=== PATIENT | female | born 1985 | race Caucasian/White ===

== ENCOUNTER 2016-11-24 10:13 | Inpatient (IN) | payer MEDICAID, OTHER ==
[~2016-11-24] VITALS: Ht 160 cm; Wt 60.9 kg
[2016-11-25] MEDS ORDERED: OXYTOCIN 30 UNITS/LR 500 ML BAG IV ONE (07:00)
[2016-11-25] MEDS ORDERED: LACTATED RINGER'S 1,000 ML IV PRN (11:00)
[2016-11-25] MEDS ORDERED: LACTATED RINGER'S 1,000 ML IV SCH ×2 (11:11→13:10)
[2016-11-25 11:19] VITALS: Ht 160 cm; Wt 60.9 kg
[2016-11-25] MEDS ORDERED: LIDOCAINE 1% (MPF) 30 ML INJ INJ PRN (11:30)
[2016-11-25] MEDS ORDERED: CARBOPROST 250 MCG INJ IM PRN ×3 (11:30→19:00)
[2016-11-25] MEDS ORDERED: BUTORPHANOL 2 MG INJ IV PRN (11:30)
[2016-11-25] MEDS ORDERED: ACETAMINOPHEN/CODEINE #3 TAB PO PRN (11:30)
[2016-11-25] MEDS ORDERED: METHYLERGONOVINE 0.2 MG INJ IM PRN ×3 (11:30→19:00)
[2016-11-25] MEDS ORDERED: MISOPROSTOL 200 MCG TAB PR PRN ×3 (11:30→19:00)
[2016-11-25] MEDS ORDERED: OXYTOCIN 30 UNITS/LR 500 ML IV SCH ×4 (11:30→13:30)
[2016-11-25] MEDS ORDERED: OXYTOCIN 30 UNITS/LR 500 ML IV PRN ×3 (11:30→19:00)
[2016-11-25] MEDS ORDERED: CEFAZOLIN 2 GM/50 ML (PMX) 50 ML IVPB ONE (13:05)
[2016-11-25] MEDS ORDERED: PHENYLephrine (100 MCG/ML) 5ML SYG ONE (13:09)
[2016-11-25] MEDS ORDERED: morphine SULFATE/PF (10 MG/10 ML) INJ ONE (13:12)
[2016-11-25] MEDS ORDERED: ONDANSETRON 4 MG INJ ONE (13:24)
[2016-11-25 13:25] LABS: BASOPHILS % 0.4 % (0.0-2.0); EOSINOPHILS # 0.1 10^3/ul (0.0-0.5); EOSINOPHILS % 0.8 % (0.0-7.0); HEMATOCRIT 39.3 % (37.0-47.0); HEMOGLOBIN 13.6 g/dl (12.0-16.0); LYMPHOCYTES # 2.4 10^3/ul (0.8-2.9); LYMPHOCYTES % 26.9 % (15.0-51.0); MEAN CORPUSCULAR HEMOGLOBIN 29.8 pg (29.0-33.0); MEAN CORPUSCULAR HGB CONC 34.7 g/dl (32.0-37.0); MEAN CORPUSCULAR VOLUME 85.9 fl (82.0-101.0); MEAN PLATELET VOLUME 8.7 fl (7.4-10.4); MONOCYTE # 0.6 10^3/ul (0.3-0.9); MONOCYTES % 6.2 % (0.0-11.0); NEUTROPHILS % 65.7 % (39.0-77.0); PLATELET COUNT 150 10^3/UL (140-440); RED BLOOD COUNT 4.57 10^6/ul (4.20-5.40); RED CELL DISTRIBUTION WIDTH 14.3 % (11.5-14.5); UNCORRECTED WBC 9.1 10^3/ul (4.8-10.8); WHITE BLOOD COUNT 9.1 10^3/ul (4.8-10.8)
[2016-11-25] MEDS ORDERED: EPHEDrine SULFATE 50 MG/5 ML SYG ONE (13:25)
[2016-11-25 13:28] LABS: CONDITION 1
[2016-11-25] MEDS ORDERED: CEFAZOLIN 2 GM/50 ML (PMX) 50 ML IV SCH (13:30)
[2016-11-25 13:44] LABS: INR 0.9; PROTIME 12.1 Sec (12.2-14.2); PT RATIO 0.9
[2016-11-25 13:45] LABS: PARTIAL THROMBOPLASTIN TIME 27.3 Sec (25.0-35.0)
[2016-11-25 13:56] LABS: CBV Base Excess -1.8 mmol/L; CBV COHb 1.5 %; CBV Oxygen Sat 66.3 mmHG; CBV Total Hemglobin 15.9 g/dl; Cord Blood Venous pO2 27.8 mmHG (15.0-45.0); Fraction OxyHgb Cord Venous 64.5 %; MODE ROOM AIR; MetHgb Cord Venous 1.2 %; Sample Type CBV
[2016-11-25] MEDS ORDERED: NALOXONE (0.4 MG/ML) INJ IV PRN (14:00)
[2016-11-25] MEDS ORDERED: ONDANSETRON 4 MG INJ IV PRN ×2 (14:00)
[2016-11-25] MEDS ORDERED: HYDROmorphONE (0.2 MG/ML) 10ML SYG IV PRN ×3 (14:00)
[2016-11-25] MEDS ORDERED: FENTAnyl 50 MCG/ML VIAL IV PRN ×2 (14:00)
[2016-11-25] MEDS ORDERED: HYDROmorphONE 1 MG/ML SYG IV PRN ×2 (14:00)
[2016-11-25] MEDS ORDERED: METOCLOPRAMIDE 10 MG INJ IV PRN (14:00)
[2016-11-25] MEDS ORDERED: MEPERIDINE 25 MG INJ IV PRN (14:00)
[2016-11-25] MEDS ORDERED: PROCHLORPERAZINE 10 MG INJ IV PRN (14:00)
[2016-11-25] MEDS ORDERED: LANOLIN 7 GM TUBE TOP PRN (19:00)
[2016-11-25] MEDS ORDERED: METHYLERGONOVINE 0.2 MG TAB PO PRN (19:00)
[2016-11-25] MEDS ORDERED: CEFAZOLIN 2 GM/50 ML (PMX) 50 ML IV ONE (19:00)
[2016-11-25] MEDS: OXYTOCIN 30 UNITS/LR 500 ML IV SCH ×2 (19:02→22:29)
--- NOTE | 2016-11-25 19:21 | HP ---
Date/Time of Note Date/Time of Note DATE: 11/25/16 TIME: 18:48 OB - History Hx of Present Free Text/Dictation That this is a 30 years old female 1 para 0 with EDC of November 24, 2016 admitted to [facility] at 40 weeks and 1 day for induction of labor due to 0 amniotic fluid, pelvic exam on admission cervix 1-2 cm 70% effacement vertex at -1 station Pitocin induction started with 1 milliunit heart rate category one, in approximately 1 hour post induction there was a 4 minutes heart deceleration the slow recovery indicating intolerance of the baby to contraction , this was explained to the patient and a decision for delivery was made after explaining pros and cons regarding this procedure and patient agreed the plan of delivery or alternatives and risks and complications discussed as well and patient agreed to proceed with the delivery This patient has been under the care of the [facility] and her course was complicated with gestational diabetes diet controlled no other complications reported on the patient's records 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 Social habits denies a smoking or drinking Review of system been normal Estimated Due Date: Nov 24, 2016 : 1 Para: 0 Care: Good Care Ultrasounds: Normal mid trimester US Obstetrical Complications: Gestational Diabetes Medical Complications: None Past Family/Social History * Past Medical, Surgical, Family and Obstetric Histories reviewed from chart. Rubella: immune RPR/VDRL: Negative GBS Status: Negative HBsAG: Negative OB Admission Exam Physical Exam HEENT: WNL Heart: Rhythm Normal Lungs: Clear, Equal Abdomen: WNL Extremities: Normal Cervical Dilatation: 2cm Effacement: 75% Station: -1 Membranes: Intact Heart Rate: 130's Decelerations: Prolonged Decelerations Varibility: Minimum Contractions on Admission: None Last 72 hours Lab Results CBC & BMP 11/25/16 13:15 OB Assessment/Plan Reason for admission: induction of labor Plan: Induction IRIS VILLANUEVA MD Nov 25, 2016 19:12
--- NOTE | 2016-11-25 20:10 | DELSUM ---
Delivery Summary A-C Datetime Report Generated by CPN: 11/25/2016 20:10 DELIVERY PERSONNEL Smooth [employer]r Worker Composites: Madison Lopez MATERNAL INFORMATION Delivery Anesthesia: Spinal Medications in Delivery: SEE ANESTHESIA NOTE Estimated Blood Loss (ml): 600 Placenta Cultured: No Maternal Complications: Other Other Maternal Complications: LOW DAHLIA LABOR SUMMARY EDC: 11/24/2016 00:00 EDC: 11/25/2016 00:00 No. Babies in Womb: 1 Attempted: No Labor Anesthesia: None LABOR INFORMATION Reason for Induction: Other Reason for Induction- Other: LOW DAHLIA AND POST DATE Oxytocin: N/A Group B Beta Strep: Negative Antibiotics # of Doses: 1 Antibiotics Time of Last Dose: 1320 Steroids Given: None Reason Steroids Not Administered: Not Applicable MEMBRANES Membranes Rupture Method: Artificial Rupture of Membranes: 11/25/2016 13:29 Length of Rupture (hr): 0.02 Amniotic Fluid Color: Heavy Meconium Amniotic Fluid Amount: Small Amniotic Fluid Odor: Normal STAGES OF LABOR Stage 3 hr: 0 Stage 3 min: 1 CSECTION DELIVERY Primary Indication: Prolgnd Deceleration Phas CSection Urgency: Emergency CSection Incidence: Primary Labor: No Labor Elective: Nonelective CSection Incision: Lower Uterine Transverse BABY A INFORMATION Delivery Date/Time: 11/25/2016 13:30 Method of Delivery: Born in Route : No : N/A Forceps: N/A Vacuum Extraction: N/A Shoulder Dystocia : N/A SHOULDER DYSTOCIA BABY A Delivery Date/Time: 11/25/2016 13:30 PRESENTATION/POSITION BABY A Presentation: Cephalic Cephalic Presentation: Vertex Vertex Position: Left Occipital Anterior Breech Presentation: N/A PLACENTA INFORMATION BABY A Placenta Delivery Time : 11/25/2016 13:31 Placenta Method of Delivery: Manual Removal Placenta Status: Delivered SCORES BABY A Heart Rate 1 min: >100 bpm Resp Effort 1 min: Good Cry Reflex Irritability 1 min: Cough/Sneeze/Pulls Away Muscle Tone 1 min: Active Motion Color 1 min: Body [place], Extremit Blue Resuscitation Effort 1 min: Tactile Stimulation SCORE 1 MIN: 9 Heart Rate 5 min: >100 bpm Resp Effort 5 min: Good Cry Reflex Irritability 5 min: Cough/Sneeze/Pulls Away Muscle Tone 5 min: Active Motion Color 5 min: Body [place], Extremit Blue Resuscitation Effort 5 min: Tactile Stimulation SCORE 5 MIN: 9 INFANT INFORMATION BABY A Gestational Age at Delivery: 40.1 Gestational Status: Full Term- 39- 40.6 Weeks Infant Outcome : Liveborn Condition : Stable Infant Sex: Female IDENTIFICATION/MEDS BABY A ID Band Number: [id number] ID Band Location: Right Leg; Left Arm Sensor Applied: Yes Sensor Number: [id number] Sensor Location : Cord Clamp Vitamin K Given : Not Given Erythromycin Given: Not Given WEIGHT/LENGTH BABY A Birthweight (gm): 2525 Infant Weight (lb): 5 Infant Weight (oz): 9 Infant Length (in): 19.00 Infant Length (cm): 48.26 CORD INFORMATION BABY A No. Cord Vessels: 3 Nuchal Cord : Around Neck x2, Tight Cord Blood Taken: Yes Infant Suction: Mouth; Nose ASSESSMENT BABY A Infant Complications: None Physical Findings at Delivery: Within Normal Limits Infant Respirations: Appears Normal Sorting Grapple Operator/ALS Called : Yes Care By: NICU TEAM Transferred To: Remains with Mother
[2016-11-25 20:15] VITALS: BP 125/75; PULSE 94; RESP 18
[2016-11-25] MEDS: LACTATED RINGER'S 1,000 ML IV SCH (20:59)
[2016-11-25] MEDS: SENNA/DOCUSATE NA (8.6MG/50MG) TAB PO SCH (21:08)
[2016-11-25 23:30] VITALS: BP 131/63; PULSE 94; RESP 17
[2016-11-26] MEDS: LACTATED RINGER'S 1,000 ML IV SCH ×2 (03:03→10:52)
[2016-11-26 04:00] VITALS: BP 119/74; PULSE 92; RESP 17
--- NOTE | 2016-11-26 05:37 | OPR ---
DATE OF OPERATION: 11/25/2016 PREOPERATIVE DIAGNOSES: 1. Intrauterine at 40 weeks and 1 day. 2. Zero amniotic fluid. 3. Category 3 heart tracing, prolonged deceleration. POSTOPERATIVE DIAGNOSES: 1. Intrauterine at 40 weeks and 1 day. 2. Zero amniotic fluid. 3. Category 3 heart tracing, prolonged deceleration. OPERATION PERFORMED: Primary transverse low cervical section. SURGEON: Iris Wynne MD BUILDING EQUIPMENT INSPECTOR: TOSHIA GALLAGHER MD ANESTHESIA: Spinal. ANESTHESIOLOGIST: TOBY MCCARTHY MD FINDINGS: Live baby girl with Apgars of 9 and 9, nuchal cord tight around the baby's neck x2, mecon ium stained baby and cord. DETAILS OF THE PROCEDURE: Under satisfactory spinal anesthesia, the patient was prepped and draped and placed in the supine position, tilted to the left. Pfannenstiel incision was made and carried t hrough the subcutaneous tissue. Bleeders brought under control with electrocautery. Fascia incised to the length of the incision. Rectus muscle divided in midline. Peritoneum was exposed and enter ed through a transverse incision. Exploration of abdomen revealed a gravid uterus at term, normal a ppearing tubes and ovaries. Bladder flap developed. Transverse incision was made in the lower segm ent of the uterus. Upon entry into the uterine cavity, it was noted the amniotic sac was meconium s tained. After opening the amniotic membrane, there was scant amount of fluid, but with moderate to s evere meconium. Baby girl was delivered from unengaged vertex with a nuchal cord tight around the ba by's neck x2. Nasal oropharyngeal suction was performed. Baby handed immediately to the t [facility] for attention . Patient received 20 units of Pitocin. Placenta delivered manually intact. Georgie rine cavity cleaned with wet sponge and drainage established. Uterus closed in 2 layers using Monoc ryl #1 in continuous fashion. Peritoneal cavity was irrigated with warm saline. Sponge, needle and instrument reported to be correct. Abdominal peritoneum closed with 2-0 chromic catgut continuousl y. Rectus muscle approximated with few interrupted 2-0 chromic catgut. Fascia closed with #1 PDS i n a continuous fashion. Subcutaneous tissue approximated with 2-0 chromic catgut. Skin closed with renu. Estimated blood loss is 500 to 600 mL. Urine bag contained 200 mL of clear urine. Patikassidy nt tolerated the procedure well and was transferred to the recovery room in a good condition. Dictated By: IRIS FUENTES/DINO Conf#: [id number] DID#: [id number]
[2016-11-26 07:02] LABS: EOSINOPHILS % 0.2 % (0.0-7.0); HEMATOCRIT 29.4 % (37.0-47.0); LYMPHOCYTES # 1.2 10^3/ul (0.8-2.9); LYMPHOCYTES % 10.9 % (15.0-51.0); MEAN CORPUSCULAR HGB CONC 34.2 g/dl (32.0-37.0); MEAN CORPUSCULAR VOLUME 87.6 fl (82.0-101.0); MEAN PLATELET VOLUME 8.4 fl (7.4-10.4); MONOCYTE # 0.6 10^3/ul (0.3-0.9); MONOCYTES % 5.7 % (0.0-11.0); NEUTROPHIL # 8.9 10^3/ul (1.6-7.5); NEUTROPHILS % 83.2 % (39.0-77.0); PLATELET COUNT 129 10^3/UL (140-440); RED BLOOD COUNT 3.35 10^6/ul (4.20-5.40); RED CELL DISTRIBUTION WIDTH 13.8 % (11.5-14.5); UNCORRECTED WBC 10.7 10^3/ul (4.8-10.8); WHITE BLOOD COUNT 10.7 10^3/ul (4.8-10.8)
[2016-11-26 07:04] LABS: CONDITION 1
[2016-11-26 07:30] VITALS: BP 136/82; PULSE 90; RESP 16
[2016-11-26] MEDS: SENNA/DOCUSATE NA (8.6MG/50MG) TAB PO SCH ×2 (08:57→20:42)
--- NOTE | 2016-11-26 09:12 | PN ---
Date/Time of Note Date/Time of Note DATE: 11/26/16 TIME: 09:11 OB Subjective Subjective Subjective Post day 1 Afebrile vital sign a stable abdomen soft incision dry bowel sounds present ambulation recommended Laboratory Tests Test 11/25/16 13:15 11/25/16 13:46 11/26/16 06:01 Activated Partial Thromboplast Time 27.3Sec Basophils # 0.010^3/ul 0.010^3/ul Basophils % 0.4% 0.0% Eosinophils # 0.110^3/ul 0.010^3/ul Eosinophils % 0.8% 0.2% Glucose Level 70mg/dl Hematocrit 39.3% 29.4% Hemoglobin 13.6g/dl 10.0g/dl Hepatitis B Surface Antigen NEGATIVE INR International Normalized Ratio 0.90 Lymphocytes # 2.410^3/ul 1.210^3/ul Lymphocytes % 26.9% 10.9% Mean Corpuscular Hemoglobin 29.8pg 30.0pg Mean Corpuscular Hemoglobin Concent 34.7g/dl 34.2g/dl Mean Corpuscular Volume 85.9fl 87.6fl Mean Platelet Volume 8.7fl 8.4fl Monocytes # 0.610^3/ul 0.610^3/ul Monocytes % 6.2% 5.7% Neutrophils # 6.010^3/ul 8.910^3/ul Neutrophils % 65.7% 83.2% Nucleated Red Blood Cells # 0.010^3/ul 0.010^3/ul Nucleated Red Blood Cells % 0.0/100WBC 0.0/100WBC Platelet Count 19689^3/UL 66153^3/UL Prothrombin Time 12.1Sec Prothrombin Time Ratio 0.9 Rapid Plasma Reagin NONREACTIVE Red Blood Count 4.5710^6/ul 3.3510^6/ul Red Cell Distribution Width 14.3% 13.8% White Blood Count 9.110^3/ul 10.710^3/ul Gregg Test N/A Arterial Blood Date Drawn 11/25/2016 1:45:28 PM Arterial Blood Gas Puncture Site CORD Blood Gas A-a O2 Differential 67.0mmHg Blood Gas Modality ROOM AIR Blood Gas Notified Time 11/25/2016 1:56:28 PM Blood Gas Notified Whom [place] Blood Gas Specimen Source CBV Blood Gas Temperature 37.0C Cord Blood Carboxyhemoglobin 1.5% Cord Venous Blood Base Excess -1.8mmol/L Cord Venous Blood HCO3 24.3mmol/L Cord Venous Blood Hemoglobin 15.9g/dl Cord Venous Blood Methemoglobin 1.2% Cord Venous Blood Oxyhemoglobin 64.5% Cord Venous Blood PCO2 45.9mmHG Cord Venous Blood PO2 27.8mmHG Cord Venous Blood pH 7.341 FiO2 21.0% POC Cord Venous Blood Oxygen Sat 66.3mmHG Fasting Glucose 88mg/dl Current Medications Medications (Trade) Dose Ordered Sig/Uli Route PRN Reason Start Time Stop Time Status Last Admin Dose Admin Lactated Ringer's (Lr) 1,000 ml @ 125 mls/hr Q8H IV 11/25/16 11:11 11/25/16 20:33 DC 11/25/16 11:24 Butorphanol Tartrate (Stadol) 2 mg Q2H PRN IV PAIN 11/25/16 11:30 11/25/16 20:33 DC Lidocaine 30 ml 30 ml ONCE PRN INJ EPISIOTOMY/TEARING 11/25/16 11:30 11/25/16 20:33 DC Oxytocin/Lactated Ringer's 500 ml @ 125 mls/hr ONCE -MAY REPEAT X1 IV 11/25/16 11:30 11/25/16 20:33 DC Oxytocin/Lactated Ringer's 500 ml @ 125 mls/hr ONCE IV 11/25/16 11:30 11/25/16 20:33 DC Acetaminophen/ Codeine Phosphate 2 tab 2 tab ONCE PRN PO Moderate to Severe Pain (4-10) 11/25/16 11:30 11/25/16 11:30 DC Lactated Ringer's 1,000 ml @ 2,000 mls/hr Q30M PRN IV PRE-EPIDURAL BOLUS 11/25/16 11:00 11/25/16 20:33 DC Oxytocin/Lactated Ringer's 500 ml @ 0 mls/hr ONCE PRN IV For Hemorrhage Management 11/25/16 11:30 11/25/16 20:33 DC Methylergonovine Maleate (Methergine) 0.2 mg ONCE PRN IM VAGINAL BLEEDING 11/25/16 11:30 11/25/16 20:33 DC Carboprost Tromethamine (Hemabate) 250 mcg ONCE PRN IM VAGINAL BLEEDING 11/25/16 11:30 11/25/16 20:33 DC Misoprostol 1000 mcg 1,000 mcg ONCE PRN TX VAGINAL BLEEDING 11/25/16 11:30 11/25/16 20:33 DC Oxytocin/Lactated Ringer's 500 ml @ 0 mls/hr Q0M IV 11/25/16 12:00 11/25/16 20:33 DC 11/25/16 11:51 Cefazolin Sodium/ Dextrose (Ancef 2 Gm/50 ml (Pmx)) 50 ml @ ud STK-MED ONCE IVPB 11/25/16 13:05 11/25/16 13:06 DC Phenylephrine HCl 500 mcg 500 mcg STK-MED ONCE .ROUTE 11/25/16 13:09 11/25/16 13:10 DC Lactated Ringer's 1,000 ml @ 125 mls/hr Q8H IV 11/25/16 13:10 11/25/16 20:33 DC Cefazolin Sodium/ Dextrose 50 ml @ 100 mls/hr ONCE IV 11/25/16 13:30 11/25/16 20:33 DC Oxytocin/Lactated Ringer's 500 ml @ 125 mls/hr ONCE IV 11/25/16 13:30 11/25/16 20:33 DC Oxytocin/Lactated Ringer's 500 ml @ 0 mls/hr ONCE PRN IV For Hemorrhage Management 11/25/16 13:30 11/25/16 20:33 DC Methylergonovine Maleate (Methergine) 0.2 mg ONCE PRN IM VAGINAL BLEEDING 11/25/16 13:30 11/25/16 20:33 DC Carboprost Tromethamine (Hemabate) 250 mcg ONCE PRN IM VAGINAL BLEEDING 11/25/16 13:30 11/25/16 20:33 DC Misoprostol (Cytotec) 1,000 mcg ONCE PRN [place] VAGINAL BLEEDING 11/25/16 13:30 11/25/16 20:33 DC Morphine Sulfate (Duramorph) 10 mg STK-MED ONCE .ROUTE 11/25/16 13:12 11/25/16 13:13 DC Ondansetron HCl (Zofran Inj) 4 mg STK-MED ONCE .ROUTE 11/25/16 13:24 11/25/16 13:25 DC Ephedrine Sulfate 50 mg STK-MED ONCE .ROUTE 11/25/16 13:25 11/25/16 13:26 DC Naloxone HCl (Narcan) 0.1 mg Q2M PRN IV FOR RESP RATE 8 OR LESS 11/25/16 14:00 11/26/16 13:59 Hydromorphone HCl (Dilaudid) 0.2 mg Q3H PRN IV PAIN LEVEL 1-5 11/25/16 14:00 11/26/16 13:59 Hydromorphone HCl (Dilaudid) 0.4 mg Q3H PRN IV PAIN LEVEL 6-10 11/25/16 14:00 11/26/16 13:59 Ondansetron HCl (Zofran Inj) 4 mg Q6H PRN IV NAUSEA AND/OR VOMITING 11/25/16 14:00 11/26/16 13:59 Prochlorperazine (Compazine Inj) 10 mg ONCE PRN IV NAUSEA AND/OR VOMITING 11/25/16 14:00 11/26/16 13:59 Hydromorphone HCl (Dilaudid (Rec)) 0.2 mg PACU ORDER PRN IV MILD PAIN LEVEL 1-3 11/25/16 14:00 11/25/16 18:00 DC 11/25/16 15:32 Hydromorphone HCl (Dilaudid (Rec)) 0.4 mg PACU ORDER PRN IV MODERATE PAIN LEVEL 4-6 11/25/16 14:00 11/25/16 18:00 DC Hydromorphone HCl (Dilaudid (Rec)) 0.6 mg PACU ORDER PRN IV SEVERE PAIN LEVEL 7-10 11/25/16 14:00 11/25/16 18:00 DC Fentanyl (Sublimaze) 25 mcg PACU ORDER PRN IV MILD PAIN LEVEL 1-3 11/25/16 14:00 11/25/16 18:00 DC Fentanyl (Sublimaze) 50 mcg PACU ODER PRN IV MODERATE PAIN LEVEL 4-6 11/25/16 14:00 11/25/16 18:00 DC Ondansetron HCl (Zofran Inj) 4 mg PACU ORDER PRN IV NAUSEA AND/OR VOMITING 11/25/16 14:00 11/25/16 18:00 DC Metoclopramide HCl (Reglan) 10 mg PACU ORDER PRN IV NAUSEA AND/OR VOMITING 11/25/16 14:00 11/25/16 18:00 DC Meperidine HCl 25 mg 25 mg PACU ORDER PRN IV POST-OP RIGORS 11/25/16 14:00 11/25/16 18:00 DC Lactated Ringer's 1,000 ml @ 125 mls/hr Q8H IV 11/25/16 18:34 11/26/16 03:03 Cefazolin Sodium/ Dextrose 50 ml @ 100 mls/hr ONCE ONCE IV 11/25/16 19:00 11/25/16 19:29 DC Oxytocin/Lactated Ringer's 500 ml @ 125 mls/hr Q4H IV 11/25/16 18:34 11/26/16 02:33 DC 11/25/16 22:29 Methylergonovine Maleate (Methergine) 0.2 mg Q6H PRN PO VAGINAL BLEEDING 11/25/16 19:00 Simethicone (Mylicon) 160 mg Q8H PRN PO DISTENSION/GAS/BLOATING 11/25/16 19:00 Senna/Docusate Sodium (Senokot-S) 1 tab BID PO 11/25/16 21:00 11/26/16 08:57 Lanolin ([id number]) 1 applic BEDSIDE MEDICATION PRN TOP BEDSIDE FOR MELVIN TO NIPPLES 11/25/16 19:00 11/25/16 21:09 Diphtheria/ Tetanus/Acell Pertussis 0.5 ml 0.5 ml ONCE ONCE IM* 11/28/16 09:00 11/28/16 09:01 Oxytocin/Lactated Ringer's 500 ml @ 0 mls/hr ONCE PRN IV For Hemorrhage Management 11/25/16 19:00 Methylergonovine Maleate (Methergine) 0.2 mg ONCE PRN IM VAGINAL BLEEDING 11/25/16 19:00 Carboprost Tromethamine (Hemabate) 250 mcg ONCE PRN IM VAGINAL BLEEDING 11/25/16 19:00 Misoprostol (Cytotec) 1,000 mcg ONCE PRN TX VAGINAL BLEEDING 11/25/16 19:00 Tramadol HCl (Ultram) 50 mg Q6H PRN PO PAIN 11/25/16 19:00 IRIS VILLANUEVA MD Nov 26, 2016 09:12
[2016-11-26] MEDS: ACCUCHECK XX SCH ×2 (10:05→13:00)
[2016-11-26 15:45] VITALS: BP 131/91; PULSE 95; RESP 18
[2016-11-26] MEDS: traMADol 50 MG TAB PO PRN (17:06)
[2016-11-26 19:30] VITALS: BP 136/78; PULSE 92; RESP 19
[2016-11-27 04:20] VITALS: BP 133/72; PULSE 82; RESP 19
[2016-11-27 08:38] VITALS: BP 105/58; PULSE 85; RESP 18
[2016-11-27] MEDS: SENNA/DOCUSATE NA (8.6MG/50MG) TAB PO SCH ×2 (08:46→21:00)
[2016-11-27] MEDS: ACCUCHECK XX SCH ×4 (08:47→20:05)
[2016-11-27] MEDS: traMADol 50 MG TAB PO PRN (11:00)
[2016-11-27] MEDS ORDERED: NA PHOSPHATE/BIPHOS 133 ML ENEMA PR ONE (14:30)
--- NOTE | 2016-11-27 14:30 | PN ---
Date/Time of Note Date/Time of Note DATE: 11/27/16 TIME: 14:29 OB Subjective Subjective Subjective Postoperative day 2 Vital sign a stable afebrile abdomen soft bowel sound present no bowel movement incision dry extremity normal IRIS VILLANUEVA MD Nov 27, 2016 14:30
[2016-11-27 16:00] VITALS: BP 122/69; PULSE 91; RESP 16
[2016-11-27 19:30] VITALS: BP 108/55; PULSE 95; RESP 20
[2016-11-28 03:22] VITALS: BP 101/59; PULSE 80; RESP 20
[2016-11-28] MEDS: ACCUCHECK XX SCH (06:00)
[2016-11-28 08:19] VITALS: BP 115/70; PULSE 95; RESP 18
[2016-11-28] MEDS: traMADol 50 MG TAB PO PRN (08:19)
[2016-11-28] MEDS: SENNA/DOCUSATE NA (8.6MG/50MG) TAB PO SCH (08:19)
[2016-11-28] MEDS ORDERED: DIPHTH/TET/ACEL PERTUSS (ADULT) 0.5 ML VIAL IM* ONE (09:00)
--- NOTE | 2016-11-28 09:18 | PD.PPDC ---
BOTTLE WASHER Discharge Instruction Condition Patient Condition: Good Diet Diet: Resume Regular Diet Activity/Restrictions Activity: Normal Activity May Shower Restrictions: No Exercising No Lifting No Driving No Sexual Activity Nothing in the Vagina No [place] No Tampons, douche Wound/Drain Care Instructions Wound/Drain Care Instructions: Remove Steri Strips in 1 week Follow-up Follow-up with Physician: 1, Week/Weeks Return to clinic for SOLID PLASTERER Instructions: Fever greater than 101 Excessive Vaginal Bleeding More than 2 pads per hour OB Instructions: Depression Blurried Vision Surgical Instructions: Incisional Drainage Incisional Redness IRIS VILLANUEVA MD Nov 28, 2016 09:18
--- NOTE | 2016-11-28 09:29 | DS ---
Date/Time of Note Date/Time of Note DATE: 11/28/16 TIME: 09:21 Obstetrical Discharge Record Final Diagnosis Final Diagnosis: Term delivered Section Section: Primary Complications Other (zero amniotic fluid category 3 heart tracing) Rupture of Membranes: No Condition on Discharge Physical Assessment Last Vitals: Afebrile vital sign stable abdomen soft incision dry lochia normal patient had normal bowel movement being discharged to the care of [facility] , recommended to make appointment with the clinic in 1 week to DC her renu, for pain a prescription of Tylenol 3 which patient stated she has no allergies to acetaminophen or codeine. Given to the patient Voiding: Yes Bowel Movement: Yes Breast: Soft, non-tender, Filling Fundus: Firm Abdomen and Incision: Healing well, dry no sign of infection or inflammation Calf Tenderness: No Patient Condition: Good IRIS VILLANUEVA MD Nov 28, 2016 09:29
--- NOTE | 2016-11-29 13:37 | NSTRPT ---
NST Information Datetime Report Generated by CPN: 11/29/2016 13:37 Datetime: 11/25/2016 09:27 NST Information EGA: 40.1 Datetime: 11/25/2016 09:25 Test Number: 1 Time on Monitor: 11/25/2016 09:43 Time off Monitor: 11/25/2016 09:53 NST Duration (Min): 10 Reason for NST: Other Reason for NST Other: Post Dates Test and Monitor Explained: Monitor Explained; Test Explained; Verbalized Understanding Pulse: 74 Resp: 18 SBP: 124 DBP: 78 Test Evaluation NST Interventions: None Patient States Movement: Present Contraction Frequency: IRRIT FHR Baseline : 130 Variability: Moderate 6-25bpm Accelerations: 15X15 Decelerations: None FHR Category: Category I NST Results: Reactive Comments: To u/s, DAHLIA 0. Cephalic., Call placed to Dr Wynne, orders received to admit to L_D for delivery, report called to Chelle COPPOLA. [id number] explained to pt, states understanding and denies furthe r questions at this time. Pt to L_D Electronically Signed By E-Signature: with User ID: [id number]
== END 2016-11-28 15:09 | disposition home or self-care (01) | DRG 765 ==
LOC: EDSTATUS 10:13 → L-D 11-25 10:23 → PP1 11-25 20:22
PROVIDERS: ADMIT Obstetrics & Gynecology; ATTEND Obstetrics & Gynecology
PROC: 10D00Z1 Extraction of Products of Conception, Low, Open Approach (ICD-10-PCS; principal; 2016-11-25 12:45)
DX: O48.0 Post-term pregnancy (principal); O41.03X0 Oligohydramnios, third trimester, not applicable or unspecified; O69.81X0 Labor and delivery complicated by cord around neck, without compression, not applicable or unspecified; Z3A.40 40 weeks gestation of pregnancy; O76 Abnormality in fetal heart rate and rhythm complicating labor and delivery; Z37.0 Single live birth
CPT/HCPCS: 36415; 82803; 82947; 82962; 85025; 85610; 85730; 86592; 86850; 86900; 86901; 87340; 88307; 94760; J0690; J1170; J2274; J2370; J2405; J2590; J7120